=== PATIENT | female | born 1960 | race Caucasian/White ===

== ENCOUNTER 2020-03-20 13:09 | Day surgery (SDC) | payer BC ==
[~2020-03-20] VITALS: Ht 167.6 cm; Wt 90.1 kg
[~2020-03-20 13:09] MED LIST: ACET325; ATOR20; CODACE30; CYCL10; Cyclobenzaprine5 MG PO; FLONASE ALLERG9.9 M2; Flonase 0.05% N16 GM; HYALURONIC ACI1 EACH; HYALURONIC ACID PO; HYDPAM50; HYDPAM50 PO; IBUP200; IBUP200 PO; IMITREX100 MG PO; METO25ER PO; OMEP20ER; OMEP20ER PO; PRAV20 PO; PREMARIN0.45 MG PO; SUMA25; ZYRTEC10 M1 PO; [UNRECOGNIZED DRUG - OTHER]
[2020-03-20] MEDS ORDERED: ONDA4 (13:21)
== END 2020-03-20 15:37 | disposition home or self-care (01) ==
LOC: ORSCSDS 13:09
PROVIDERS: Internal Medicine Gastroenterology
PROC: 0DJD8ZZ Inspection of Lower Intestinal Tract, Via Natural or Artificial Opening Endoscopic (ICD-10-PCS; principal; 2020-03-20 14:30)
DX: Z86.010 Personal history of colon polyps (principal); K57.30 Diverticulosis of large intestine without perforation or abscess without bleeding; K64.8 Other hemorrhoids; K21.9 Gastro-esophageal reflux disease without esophagitis; E78.5 Hyperlipidemia, unspecified; Z79.899 Other long term (current) drug therapy
CPT/HCPCS: J2704; J7120

== ENCOUNTER 2020-12-17 14:56 | Emergency (ER) | payer BC ==
[~2020-12-17] VITALS: Ht 167.6 cm; Wt 86.2 kg
[~2020-12-17 14:56] MED LIST changes: +ONDA4
[2020-12-17 16:25] LABS: BASOPHILS ABSOLUTE AUTO 0.06 K/mm3 (0.00-0.23); BASOPHILS PERCENT AUTO 1 % (0-2); EOSINOPHILS ABSOLUTE AUTO 0.02 K/mm3 (0.00-0.68); EOSINOPHILS PERCENT AUTO 0 % (0-6); Hematocrit 43.3 % (33.0-51.0); Hemoglobin 14.5 g/dL (11.5-16.0); IMMATURE GRAN ABSOLUTE AUTO 0.03 K/mm3 (0.00-0.10); IMMATURE GRAN PERCENT AUTO 0 % (0-1); LYMPHOCYTES ABSOLUTE AUTO 1.89 K/mm3 (0.84-5.20); LYMPHOCYTES PERCENT AUTO 26 % (21-46); MONOCYTES ABSOLUTE AUTO 0.62 K/mm3 (0.16-1.47); MONOCYTES PERCENT AUTO 9 % (4-13); Mean Corpuscular HGB 28.9 pg (26.0-34.0); Mean Corpuscular HGB Conc 33.5 g/dL (31.5-36.5); Mean Corpuscular Volume 86 fL (80-100); Mean Platelet Volume 10.2 fL (9.1-12.4); NEUTROPHILS ABSOLUTE AUTO 4.59 K/mm3 (1.96-9.15); NEUTROPHILS PERCENT AUTO 64 % (41-73); Platelet Count 162 K/mm3 (150-400); RDW Coefficient Variation 15.4 % (11.7-14.2); RDW Standard Deviation 48.7 fL (35.1-46.3); Red Blood Cell Count 5.01 M/mm3 (3.80-5.20); White Blood Cell Count 7.21 K/mm3 (4.00-11.30)
[2020-12-17 16:46] LABS: Troponin I <0.015 ng/mL (0.000-0.040)
[2020-12-17 16:49] LABS: Alanine Aminotransfer (ALT/SGP 1115 U/L (12-78); Albumin/Globulin Ratio 0.6 (0.8-1.8); Alk Phos 125 U/L (50-136); Anion Gap 8 mmol/L (6-16); Aspartate Aminotrans (AST/SGOT 772 U/L (12-37); Bilirubin, Total 1.2 mg/dL (0.1-1.0); Blood Urea Nitrogen 15 mg/dL (8-24); Bun/Creatinine Ratio 13.5 (12.0-20.0); CO2, Blood 23 mmol/L (21-32); Calcium, Blood 8.9 mg/dL (8.5-10.1); Chloride, Blood 106 mmol/L (98-108); Creatinine, Blood 1.11 mg/dL (0.40-1.00); Globulin, Blood 4.8 g/dL (2.2-4.0); Glomerular Filtration Rate 50 (60-); Glucose, Blood 98 mg/dL (70-99); Potassium, Blood 4.3 mmol/L (3.5-5.5); Sodium, Blood 137 mmol/L (136-145); Total Protein, Blood 7.8 g/dL (6.4-8.2)
[2020-12-17] MEDS ORDERED: TIZA4 PO (18:34)
[2020-12-17] MEDS ORDERED: FLUC200 PO (18:34)
[2020-12-17] MEDS ORDERED: METO25ER PO (18:35)
[2020-12-17] MEDS ORDERED: PROM25 PO (18:53)
== END 2020-12-17 20:25 | disposition home or self-care (01) ==
LOC: ER 14:56
PROVIDERS: Emergency Medicine Emergency Medical Services
DX: K75.9 Inflammatory liver disease, unspecified (principal); Z88.8 Allergy status to other drugs, medicaments and biological substances; Z88.2 Allergy status to sulfonamides; Z91.048 Other nonmedicinal substance allergy status; Z88.5 Allergy status to narcotic agent; Z79.899 Other long term (current) drug therapy; Z91.018 Allergy to other foods
CPT/HCPCS: 36415; 71045; 76705; 80053; 83690; 83735; 84484; 85025; 93005; 93010; 96361; 96374; 96375; 99284-25; A9270; J2765; J7030

== ENCOUNTER 2022-02-22 06:41 | Day surgery (SDC) | payer BC ==
[~2022-02-22 06:41] MED LIST changes: +FLUC200 PO; +PROM25 PO; +TIZA4 PO
[2022-02-22] MEDS ORDERED: MIRALAX17 GM (07:07)
[2022-02-22] MEDS ORDERED: ESCITALOPRA5 MG/5 ML (07:07)
[2022-02-22] MEDS ORDERED: MOTRIN IB200 MG (07:07)
[2022-02-22] MEDS ORDERED: DICLOFENAC SOD100 GM (07:07)
[2022-02-22] MEDS ORDERED: TROKENDI XR25 MG (07:07)
== END 2022-02-22 08:37 | disposition home or self-care (01) ==
DX: K21.9 Gastro-esophageal reflux disease without esophagitis (principal); R11.0 Nausea; K20.90 Esophagitis, unspecified without bleeding; E78.5 Hyperlipidemia, unspecified; Z79.899 Other long term (current) drug therapy

== ENCOUNTER → 2022-05-19 | Outpatient (CLI) | payer BC ==
[~2022-05-19] MED LIST changes: +DICLOFENAC SOD100 GM; +ESCITALOPRA5 MG/5 ML; +MIRALAX17 GM; +MOTRIN IB200 MG; +TROKENDI XR25 MG
[2022-05-19 11:48] LABS: Protein, Urine Quantitative 6.1 mg/dL (0.0-11.9)
[2022-05-19 11:53] LABS: Microalbumin, Urine Quant. <5.000 mg/L (0.000-20.000)
== END | disposition home or self-care (01) ==
LOC: LAB SHORT 07:30 → LAB FUT 05-17 17:00
PROVIDERS: Internal Medicine Nephrology
DX: N18.2 Chronic kidney disease, stage 2 (mild) (principal); D63.1 Anemia in chronic kidney disease; N25.81 Secondary hyperparathyroidism of renal origin; E78.00 Pure hypercholesterolemia, unspecified; G60.9 Hereditary and idiopathic neuropathy, unspecified; R76.9 Abnormal immunological finding in serum, unspecified; R94.5 Abnormal results of liver function studies
CPT/HCPCS: 81050; 82043; 82570; 84156

== ENCOUNTER 2022-08-18 07:40 | Day surgery (SDC) | payer BC ==
[~2022-08-18] VITALS: Ht 167.6 cm; Wt 93.7 kg
[2022-08-18] MEDS ORDERED: Neurontin 100100 MG (07:57)
[2022-08-18] MEDS ORDERED: LOSA25 (07:58)
[2022-08-18 09:48] VITALS: BP 105/67
--- NOTE | 2022-08-18 09:48 | NUR ---
08/18/22 0948 Monica Mcneal IV DISCONTINUED INTACT, WNL
== END 2022-08-18 09:53 | disposition home or self-care (01) ==
LOC: ORSCSDS 07:40
PROVIDERS: Student in an Organized Health Care Education/Training Program
PROC: 0DB98ZX Excision of Duodenum, Via Natural or Artificial Opening Endoscopic, Diagnostic (ICD-10-PCS; principal; 2022-08-18 09:00)
PROC: 0DBK8ZX Excision of Ascending Colon, Via Natural or Artificial Opening Endoscopic, Diagnostic (ICD-10-PCS; principal; 2022-08-18 09:00)
PROC: 0DBN8ZX Excision of Sigmoid Colon, Via Natural or Artificial Opening Endoscopic, Diagnostic (ICD-10-PCS; principal; 2022-08-18 09:00)
PROC: 0DB68ZX Excision of Stomach, Via Natural or Artificial Opening Endoscopic, Diagnostic (ICD-10-PCS; principal; 2022-08-18 09:00)
DX: D50.9 Iron deficiency anemia, unspecified (principal); K21.9 Gastro-esophageal reflux disease without esophagitis; D12.2 Benign neoplasm of ascending colon; K63.5 Polyp of colon; Z86.010 Personal history of colon polyps; E78.5 Hyperlipidemia, unspecified; N18.9 Chronic kidney disease, unspecified; K29.40 Chronic atrophic gastritis without bleeding; Z79.899 Other long term (current) drug therapy
CPT/HCPCS: 88305; 88342; J2704; J7120

== ENCOUNTER → 2022-09-01 | Outpatient (CLI) | payer BC ==
[~2022-09-01] MED LIST changes: +LOSA25; +Neurontin 100100 MG
== END | disposition home or self-care (01) ==
LOC: PLD 12:12 → LAB 12:12 → LAB SHORT 12:12
DX: L57.0 Actinic keratosis (principal)
CPT/HCPCS: 88305